=== PATIENT | male | born 1960 | race American Indian/Alaskan Native ===

== ENCOUNTER 2024-12-07 02:29 | Observation (INO) | payer MEDICARE, OTHER, SELFPAY ==
[2024-12-06 20:54] VITALS: BP 144/70; BMI 28.3
[2024-12-06 20:57] VITALS: BP 144/70
[2024-12-06 21:00] VITALS: BP 127/102
[2024-12-06 21:07] LABS: % Basophils 0.5 % (0-2); % Immature Granulocytes 0.6 % (0-0.5); % Lymphocytes 14.5 % (20.5-51.1); % Monocytes 6.1 % (1.7-9.3); % Neutrophils 75.3 % (42.2-75.2); Absolute Basophils 0.1 10^3/uL (0-0.2); Absolute Eosinophils 0.3 10^3/uL (0-0.7); Absolute Immature Granulocytes 0.1 10^3/uL (0-0.05); Absolute Lymphocytes 1.6 10^3/uL (1.2-3.4); Absolute Monocytes 0.7 10^3/uL (0.1-0.6); Hematocrit 35.3 % (39.0-52.0); Hemoglobin 11.9 g/dL (13.0-18.0); Mean Corp Hgb Conc. 33.7 g/dL (33.0-37.0); Mean Corpuscular Hgb 27.4 pg (27.0-31.0); Mean Corpuscular Volume 81.3 fL (80.0-94.0); Nucleated Red Blood Cells % 0 % (-); Platelet Count 276 10^3/uL (130-400); Red Blood Cell Count 4.34 10^6/uL (4.70-6.10); Red Cell Dist. Width 13.2 % (11.5-14.5); White Blood Cell Count 10.7 10^3/uL (4.8-10.8)
[2024-12-06 21:27] LABS: ALT (SGPT) 18 U/L (0-50); AST (SGOT) 17 U/L (17-59); Albumin 4.3 g/dl (3.5-5.0); Alkaline Phosphatase 88 U/L (38-126); Blood Urea Nitrogen 14 mg/dl (9-20); Calcium 9.1 mg/dl (8.4-10.2); Carbon Dioxide 24 mmol/L (22-30); Chloride 96 mmol/L (98-107); Estimated Creatinine Clearance 100 ml/min; Glucose 225 mg/dl (70-99); Potassium 3.9 mmol/L (3.5-5.1); Sodium 126 mmol/L (135-145); Total Bilirubin 0.5 mg/dl (0.2-1.3); Total Protein 6.6 g/dl (6.3-8.2); eGFR > 60.00
[2024-12-06 21:30] LABS: Troponin I < 0.012 ng/ml
[2024-12-06 22:00] VITALS: BP 122/82
[2024-12-06 23:53] VITALS: BP 108/79
--- NOTE | 2024-12-06 23:58 | ED.GENMED ---
History of Present Illness
General
Chief Complaint: Chest Pain
Source: patient
Exam Limitations: none
Time Seen by Provider: 12/06/24 22:01
Nursing documentation reviewed up to this point in time: agreed with
History of Present Illness
History of Present Illness:
Patient states he bent forward to put a dish of water on floor and when he stood up he felt light headed. Symptom did not resolve and he began to feel faint. States he sat in chair and took his pulse. States rate was irregular and he thought
maybe he was in afib. He tried to take an EKG thru his phone but could not get a good reading. He called 911 and was transported to ED. He denies chest pain. States he felt 'something' but not pain. Denies any SOB. No prior history of same
Past History
Past History
ED Past Medical History: Arrthythmia (afib), CAD, Hypercholesterolemia and NIDDM
ED Past Surgical History: Cardiac (stent)
Review of Systems
Review of Systems
Allergies reviewed?: Yes
All Other Systems: ROS reviewed and negative except as documented in HPI and ROS
Constitutional: Reports no symptoms
EENT: Reports no symptoms
Respiratory: Reports no symptoms
Cardiac: Reports other (irregular heart beat)
ABD/GI: Reports no symptoms
: Reports no symptoms
Musculoskeletal: Reports no symptoms
Skin: Reports no symptoms
Neurological: Reports other (lightheaded)
Psychiatric: Reports no symptoms
Phy Exam
General Physical Exam
General Presentation: mild distress
General age: appears stated age
General Skin: warm and dry
General Mental: alert
Cardiovascular Exam
Cardiovascular Exam: no edema and occasionally irregular
Pulmonary Exam
Pulmonary Exam: lungs clear and no respiratory distress
Musculoskeletal Exam
Musculoskeletal Exam: full ROM and neuro vasc intact
Skin Exam
Skin Exam: normal color, warm/dry and no rash
Psychiatric Exam
Psychiatric Exam: normal mood/affect
Course
Orders/Labs/Results
Orders:
Orders
12/06/24 20:52
Electrocardiogram (*1) Urgent
Reason for Study: Chest Pain
Cardiac Monitoring- Treatment ONCE
EKG- Treatment ONCE
IV Insert/Care/Rem.- Treatment PRN
O2 Therapy [RESP] Urgent
Titrate/Wean O2 to maintain O2 sat greater than (%): 90
Special Instructions: Maintain sats >/=90%
Pulse Ox/spot Check [RESP] Urgent
Quantity: 1
Special Instructions: ON ROOM AIR
12/06/24 20:54
Complete Blood Count/With Diff Urgent
Comprehensive Metabolic Panel Urgent
Troponin I Urgent
12/06/24 23:35
Electrocardiogram (*1) Urgent
Reason for Study: Palpitations
EKG- Treatment ONCE
12/06/24 23:57
Troponin I Urgent
Abnormal Lab Results
12/06/24
20:54
RBC 4.34 L 10^6/uL
(4.70-6.10)
Hgb 11.9 L g/dL
(13.0-18.0)
Hct 35.3 L %
(39.0-52.0)
Abs Immat Gran (auto) 0.1 H 10^3/uL
(0-0.05)
Absolute Neuts (auto) 8.0 H 10^3/uL
(1.4-6.5)
Absolute Monos (auto) 0.7 H 10^3/uL
(0.1-0.6)
Immature Gran % 0.6 H %
(0-0.5)
Neutrophils % 75.3 H %
(42.2-75.2)
Lymphocytes % 14.5 L %
(20.5-51.1)
Sodium 126 L mmol/L
(135-145)
Chloride 96 L mmol/L
(98-107)
Glucose 225 H mg/dl
(70-99)
12/06/24 20:54
12/06/24 20:54
Vital Signs
Initial and Last Documented VS:
Initial Vital Signs
Temp Pulse Resp BP Pulse Ox
98.6 F 103 15 144/70 100
12/06/24 20:54 12/06/24 20:54 12/06/24 20:54 12/06/24 20:54 12/06/24 20:54
Last Documented Vital Signs
Temp Pulse Resp BP Pulse Ox
97.8 F 85 23 129/63 97
12/07/24 00:00 12/07/24 00:30 12/07/24 00:30 12/07/24 00:00 12/07/24 00:30
*Pulse Oximetry
Patient hypoxic: no
Update Note
Update Note:
Patient to ED with complaint of lightheadedness, near syncope. Symptom started tonight. Denies any chest pain/pressure. Staters he 'felt something' at home but could not describe. EKG reviewed with Dr. Rodas who recommends admission.
Abnormal pauses noted in initial and repeat EKG. Troponin neg, repeat pending. He as a history of afib and is on xarelto. Reports compliance with med. VSS. WIll admit to hospitalists service.
Na 126 noted, he reports a baseline of 127-128. Does not know why he is chronically low, follows with absence management consultant.
ED Attending Note
-
Portions of this chart may have been created with voice recognition software.� Occasional wrong word or��sound alike� substitutions may have occurred due to the inherent limitations of voice recognition software.
Discharge Plan
Departure
Patient Disposition: Admit
Date of Disposition: 12/07/24
Time of Disposition: 00:42
Presentation/result/management discussed w/ accepting MD/DO: Hospitalist
Patient with high blood pressure during this ER visit?: No
Condition: Fair
Covid-19: Not Applicable
Discharge Problem:
Near syncope, Irregular heart rhythm
Referrals:
Jeremy Hung MD [Family Provider] -
Interventions
Interventions:
*Risk Screen - Suicide Last Done: 12/06/24 20:54
*General Assessment Last Done: 12/06/24 20:54
*Neglect/Abuse Screening Last Done: 12/06/24 20:54
*ED- Fall Risk Assessment Last Done: 12/06/24 20:54
*ED COVID-19 Vaccine History Last Done: 12/06/24 23:58
ED- Cardiac Assessment Last Done: 12/06/24 23:30
Discharge Date and Time
Print Language: P[place] ISLAND[place]
[2024-12-07] VITALS (9 sets, daily range): BP systolic 107–156; BP diastolic 22–96; PULSE 44–91; BMI 27.9
[2024-12-07 00:35] LABS: Troponin I < 0.012 ng/ml
--- NOTE | 2024-12-07 02:18 | HPS.HSE ---
Family Physician
-
Family Physician: Jeremy Hung
Chief Complaint
-
Lightheaded
History of Present Illness
Patient is a 64y M with PMH significant for PA-Fib and DM-II who presents to ED complaining of lightheadedness and weakness. Patient states that he bent down to place something on the ground this afternoon and when he stood he felt very
lightheaded. He was able to get back into the house and sat on the couch. He did not lose consciousness, fall, etc. Patient continued to feel lightheaded. He checked his pulse / EKG using his Apple Watch and noted that his pulse rate was
fluctuating significantly between 40 and 130 bpm. He had no chest pain or palpitations. No shortness of breath, nausea, diaphoresis, etc.
His lightheadedness did not fully resolve and his pulse remained erratic and patient called 911. He was brought to the ED for further evaluation.
Patient notes on review of his Watch data that he has had similar pulse abnormalities - though much less frequent / more brief - over the past few months. Episodes seem to have increased in frequency / duration over the past 1-2 months.
Patient has prior h/o A-Fib s/p PVI ablation at [facility] (2018).
Medical History
Past Medical History
Past Medical History: Reports Other
Additional Past Medical History:
Paroxysmal Atrial Fibrillation
ASCVD
Hypertension
DM-II
Chronic Hyponatremia
BPH
GERD
Past Surgical History: Reports Other
Additional Past Surgical History:
PVI Ablation
PTCA with Stent
Social History
Tobacco: Non-smoker
Alcohol: None
Drug: None
Family History
Family History: Not pertinent
Allergies / Home Medications
Allergies reflects when Allergies were last updated in [employer].
Home Medications with original date entered in [employer]
Allergy/Medication List:
Allergies
Allergy/AdvReac Type Severity Reaction Status Date / Time
No Known Allergies Allergy Unverified 12/07/24 00:05
Home Medications
amlodipine 5 mg tablet 5 mg PO BID 12/07/24
aspirin 81 mg chewable tablet 81 mg PO DAILY 12/07/24
demeclocycline 150 mg tablet 150 mg PO BID 12/07/24
ezetimibe 10 mg tablet 10 mg PO HS 12/07/24
finasteride 5 mg tablet 5 mg PO DAILY 12/07/24
insulin degludec 100 unit/mL (3 mL) subcutaneous pen (Tresiba FlexTouch U-100 insulin) 28 unit SC HS 12/07/24
metformin 1,000 mg tablet 1,000 mg PO DAILY 12/07/24
metoprolol tartrate 25 mg tablet 25 mg PO BID 12/07/24
omeprazole 20 mg capsule,delayed release 20 mg PO DAILY 12/07/24
repaglinide 1 mg tablet 1 mg PO TID 12/07/24
rivaroxaban 20 mg tablet (Xarelto) 20 mg PO QPM 12/07/24
rosuvastatin 5 mg tablet 5 mg PO HS 12/07/24
sitagliptin phosphate 50 mg-metformin 1,000 mg tablet (Janumet) 1 tab PO HS 12/07/24
valsartan 320 mg tablet 320 mg PO DAILY 12/07/24
Review of Systems
-
History Source: Patient
A 12 point ROS was completed and negative except as noted: Yes
Constitutional: Reports Fatigue; Denies Fever or Chills
EENT: Denies Sore Throat
Respiratory: Denies Cough or Trouble Breathing
Cardiac: Reports Syncope ('near syncope'); Denies Chest Pain or Palpitations
Abdomen/GI: Denies Abdominal Pain, Nausea, Vomiting or Diarrhea
: Denies Dysuria or Frequency
Musculoskeletal: Denies Joint Pain or Edema
Neurological: Denies Dizzy or Headache
Psych: Denies Depression or Anxiety
Physical Exam
Vital Signs
Vital Signs
Temp Pulse Resp BP Pulse Ox
97.8 F 85 17 120/61 100
12/07/24 00:00 12/07/24 02:00 12/07/24 02:00 12/07/24 02:00 12/07/24 02:00
Physical Exam
General: Other (64y M in no acute distress.)
HEENT: Moist mucous membranes and PERRLA
Respiratory: Clear; No Wheezes, Rales or Rhonchi
Cardiac: S1/S2 and Irregular Rhythm; No Murmur
GI: Soft, Non Tender, Non Distended and Normal Bowel Sounds
Musculoskeletal: No Clubbing, No Cyanosis and No Edema
Neuro: AO x 3
Laboratory Results
-
12/06/24 20:54
12/06/24 20:54
Laboratory Results
Total Bilirubin 0.5 mg/dl (0.2-1.3) 12/06/24 20:54
AST 17 U/L (17-59) 12/06/24 20:54
ALT 18 U/L (0-50) 12/06/24 20:54
Alkaline Phosphatase 88 U/L (38-126) 12/06/24 20:54
Troponin I < 0.012 ng/ml 12/06/24 23:57
Impression/Plan
-
A/P: Patient is a 64y M with PMH significant for PA-Fib, ASCVD and DM-II who presents to ED complaining of lightheadedness and arrhythmia.
Near-Syncope / Lightheadedness
Sinus Arrhythmia
- Observe overnight on telemetry for further evaluation.
- EKG / tele shows significant sinus arrhythmia with alternating periods of SVT and pauses.
- Cardiology evaluation for additional recommendations.
- Check TFTs, Echo, etc.
- Follow for any new / worsening symptoms.
Paroxysmal Atrial Fibrillation
- s/p ablation at [facility] several years ago.
- Continue current Xarelto for stroke risk reduction.
ASCVD
- Stable. No chest pain at present. Troponin undetectable x 2 sets.
- Continue ASA, statin, etc.
- Follow for any new complaints.
Chronic Hyponatremia
- Patient states that his typical Na level is 127-128.
- Current value is near known baseline and not likely related to presenting symptoms.
- Continue demeclocycline, salt supplementation.
- Follow for changes in Na levels.
Benign Hypertension
- Stable. Continue metoprolol, valsartan with holding parameters.
DM-II
- Stable. Continue basal insulin.
- Hold Prandin acutely.
- Follow glucose and cover with SSI as needed.
- Update A1C.
BPH
- Stable. Continue finasteride.
- Bladder scan protocol.
DVT Prophylaxis: On Xarelto
Code Status: Full
--- NOTE | 2024-12-07 03:35 | PTCARENOTE ---
Patient arrived from the ED via stretcher. Patient ambulated into the room. AAOx3, VSS. No complaints of dizziness or light headedness. No complaints of pain at this time. Patient updated on plan of care and medications. Oriented to the room. Call
eden is within reach.
[2024-12-07 07:33] LABS: Glucose - Point of Care 151 mg/dl (70-99)
[2024-12-07 08:17] LABS: Hematocrit 36.8 % (39.0-52.0); Hemoglobin 12.6 g/dL (13.0-18.0); Mean Corp Hgb Conc. 34.2 g/dL (33.0-37.0); Mean Corpuscular Hgb 27.5 pg (27.0-31.0); Mean Corpuscular Volume 80.2 fL (80.0-94.0); Mean Platelet Volume 9.4 fL (7.4-10.4); Platelet Count 292 10^3/uL (130-400); Red Blood Cell Count 4.59 10^6/uL (4.70-6.10); Red Cell Dist. Width 13.3 % (11.5-14.5); White Blood Cell Count 8.5 10^3/uL (4.8-10.8)
[2024-12-07 08:47] LABS: Blood Urea Nitrogen 11 mg/dl (9-20); Calcium 9.1 mg/dl (8.4-10.2); Carbon Dioxide 22 mmol/L (22-30); Chloride 98 mmol/L (98-107); Estimated Creatinine Clearance 100 ml/min; Glucose 143 mg/dl (70-99); Glycohemoglobin (HgbA1c) 6.7 % (4.0-5.6); HDL Cholesterol 47 mg/dl; LDL Cholesterol, Calculated 40 mg/dl; Magnesium 1.9 mg/dl (1.6-2.3); Potassium 4.4 mmol/L (3.5-5.1); Sodium 129 mmol/L (135-145); Total Cholesterol 99 mg/dl (50-199); Triglyceride 60 mg/dl (10-149); Very Low Density Lipoprotein 12 mg/dl (0-30); eGFR > 60.00
[2024-12-07] MEDS: DIOVAN 320 MG PO (08:51)
[2024-12-07] MEDS: NOVOLOG FLEXPEN-MODERATE RESISTANCE 1 UNITS SC ×2 (08:51→12:45)
[2024-12-07] MEDS: LOW STRENGTH ASPIRIN 81 MG PO (08:51)
[2024-12-07] MEDS: SODIUM CHLORIDE 1 GRAM PO (08:52)
[2024-12-07] MEDS: DECLOMYCIN 150 MG PO (08:52)
[2024-12-07 09:15] LABS: TSH Reflex To Free T4 1.51 uIU/ml (0.47-4.68)
[2024-12-07] MEDS: GLUCOPHAGE 1000 MG PO (09:15)
[2024-12-07] MEDS: PROTONIX 40 MG PO (09:15)
[2024-12-07] MEDS: NORVASC 5 MG PO (09:15)
--- NOTE | 2024-12-07 09:29 | CON.CAR ---
Addendum entered and electronically signed by Reynaldo Altman MD 12/07/24 11:41:
I saw and examined the patient.
The VENEER JOINTER OPERATOR's note was reviewed and I agree with the note.
Comment: 64 yo male (staff pharmacist is Dr. Luis Rizvi [place] and EP is Dr. Fracisco Muller at [facility]) with paroxysmal Afib s/p PVI in 2019 at [facility], CAD presents with increasing episodes of palpitations. In the past he had been told to take
metoprolol when he has palpitations. He was concerned because his watch was telling him his heart rate was in the low 40s at times. He is compliant with his Xarelto. He did have some dizziness when he changed positions yesterday. But he states
he has this issue frequently and knows that he just needs to change positions slowly. No chest pain. On exam he has a regular rate and rhythm with a normal S1-S2 no murmurs or gallops were appreciated abdomen soft nontender nondistended with no
hepatosplenomegaly extremities are well-perfused. EKG is reviewed, initial EKG showed sinus rhythm with brief runs of atrial tachycardia this morning sinus rhythm with PACs. Telemetry shows sinus rhythm with PACs. No significant arrhythmias no
significant bradycardia arrhythmias. Overall, palpitations likely in the setting of PACs and brief runs of PSVT. Recommend starting metoprolol succinate 25 mg p.o. nightly. Echocardiogram was normal today. He has follow-up planned with his
typical electrophysiology at the [facility] on 07 January. Recommend he keep that appointment. Orthostatics negative. Continue Xarelto for his history of PAF although we have not seen this recurrent today. I do think it is time for
him to stop his baby aspirin. Given remote PCI and ongoing use of DOAC. No contraindication to discharge.
Original Note:
Consultation
Consultation Request
Date/Time Consultation Requested: 12/07/24 5:15a
Date/Time Consultation Performed: 12/07/24 9a
Requesting Provider: Dr. Bob
Performing Provider: MICHELLE Harp for Dr. Altman
Reason for Consultation: near syncope
Medical History
-
Chief Complaint: near syncope
History of Present Illness:
Mr. Benítez is a 64 yo male (staff pharmacist is Dr. Luis Rizvi [place] and EP is Dr. Fracisco Muller at [facility]) with paroxysmal Afib s/p PVI in 2019 at [facility], CAD s/p PCI RCA 01/2019, HTN, DM, GERD and BPH, who presents to the ER with c/o dizziness and
possible arrhythmia. He states bending over to place his dog's water bowl on the ground and stood up fast and felt dizzy. This improved after seconds, so he started walking into his living room to sit down and again he felt mild dizziness. His
Apple Watch was reading rates 40s-120s and he call EMS. Upon arrival heart rate was 70s, he was brought to and now admitted to hospitalist service and we are consulted for near syncope. His EKGs show NSR with PACs, no Afib. Currently he feels
well at rest w/o dizziness.
Past Medical History
Past Medical History: Other (as above)
Past Surgical History: Cardiac (PVI 2018 at [facility])
Social History
Tobacco: Non-Smoker
Alcohol: None
Living: With Family
Family History
Family History: Reviewed & Not Pertinent
Allergies / Home Medications
Allergy/AdvReac Type Severity Reaction Status Date / Time
No Known Allergies Allergy Unverified 12/07/24 00:05
�Medication �Instructions �Recorded �Confirmed �Type
amlodipine 5 mg tablet 5 mg PO BID 12/07/24 12/07/24 History
aspirin 81 mg chewable tablet 81 mg PO DAILY 12/07/24 12/07/24 History
demeclocycline 150 mg tablet 150 mg PO BID 12/07/24 12/07/24 History
ezetimibe 10 mg tablet 10 mg PO HS 12/07/24 12/07/24 History
finasteride 5 mg tablet 5 mg PO DAILY 12/07/24 12/07/24 History
insulin degludec 100 unit/mL (3 28 unit SC 12/07/24 12/07/24 History
mL) subcutaneous pen (Tresiba
FlexTouch U-100 insulin)
metformin 1,000 mg tablet 1,000 mg PO DAILY 12/07/24 12/07/24 History
metoprolol tartrate 25 mg tablet 25 mg PO BID 12/07/24 12/07/24 History
omeprazole 20 mg capsule,delayed 20 mg PO DAILY 12/07/24 12/07/24 History
release
repaglinide 1 mg tablet 1 mg PO TID 12/07/24 12/07/24 History
rivaroxaban 20 mg tablet (Xarelto) 20 mg PO QPM 12/07/24 12/07/24 History
rosuvastatin 5 mg tablet 5 mg PO HS 12/07/24 12/07/24 History
sitagliptin phosphate 50 1 tab PO HS 12/07/24 12/07/24 History
mg-metformin 1,000 mg tablet
(Janumet)
valsartan 320 mg tablet 320 mg PO DAILY 12/07/24 12/07/24 History
Review of Systems
-
History Source: Patient
All other systems: Negative unless noted
Physical Exam
Vital Signs
Temp Pulse Resp BP Pulse Ox
98.4 F 82 18 138/68 95
12/07/24 07:30 12/07/24 08:51 12/07/24 07:30 12/07/24 08:51 12/07/24 07:30
Lab Results
12/07/24 07:01
12/07/24 07:01
Troponin I < 0.012 ng/ml 12/06/24 23:57
Physical Exam
General: Well Developed, Well Nourished and No Apparent Distress
HEENT: Normocephalic, Anicteric and Moist Mucous Membranes
Respiratory: Clear and Non Labored Respirations
Cardiac: S1/S2 and Regular Rhythm
Breast: Deferred by me
GI: Soft, Non Tender, Non Distended and Normal Bowel Sounds
Genito-urinary: No Costovertebral Tender
Musculoskeletal: No Clubbing, No Cyanosis and No Edema
Skin: Warm and Dry
Neuro: AO x 3
Hematologic/Lymphatic: No Lymphadenopathy
Psych: Calm
Impression / Plan
-
Near syncope - last night.
- initially orthostasis at home after standing up too quickly.
- tele and EKG with SR with PACs, no Afib.
- he has PRN Lopressor at home and has not used it, he states prior to ablation in 2019 he was on Metoprolol and it caused severe fatigue.
- monitor tele.
- he has a f/u appointment with his EP Dr. Muller at [facility] on 01/07/25.
- consider standing BB or CCB for ectopy and consider outpatient cardiac monitoring for longer time period.
Afib - paroxysmal.
- s/p PVI 2019 at [facility], follows with Dr. Muller at [facility].
- no recurrence of Afib on tele/ekg.
- continue Xarelto.
HTN - stable on meds, continue.
CAD - stable w/o angina.
- PCI 2019.
- he states having a cath about 6 months ago and no new CAD/patent stent.
- continue medical therapy.
Data Reviewed
-
EKG: Tracing Personally Visualized and interpreted (SR with PACs, PVCs)
Medical Tests (Nuc Med, Echo etc): Report Reviewed by me (echo 12/07/24: EF 55-60%, no valve disease.)
Labs: Labs Reviewed by me
Old Records: Reviewed
[2024-12-07 11:45] LABS: Glucose - Point of Care 175 mg/dl (70-99)
--- NOTE | 2024-12-07 12:42 | W.PN.HOSP.TC ---
Today's Communication/Plan
-
Discharge
Assessment / Plan
Assessment / Plan
64-year-old man with history of A-fib presented with lightheadedness and weakness. On his Apple Watch heart rate was fluctuating between 40 and 130 patient has a history of A-fib with PVI ablation at [facility] in 2018.
No complaints. Anxious to go home
CVS: S1-S2 normal
Chest: CTA B/L
Abdomen: Soft, NT ,Bowel sounds present
Extremities: No edema
Echo 12/07/2024-normal biventricular size and systolic function. EF 55 to 60%. No significant valvular disease
# Lightheadedness/near syncope prior to admission
EKG with sinus arrhythmia/paroxysmal SVT
Echo as above
Normal TSH
Troponin-negative
Cardiology evaluation
# Paroxysmal atrial fibrillation-status post ablation at [facility] 2018
Continue Xarelto. Beta-blockers added patient is agreeable to take it.
Comic Writer is Dr. Luis Rizvi [place] and EP is Dr. Fracisco Muller at [facility].
He has an appointment coming up on January 07
# Coronary artery disease with history of RCA stent-continue aspirin, statin, valsartan, metoprolol
# Chronic hyponatremia-patient was supposed to be on Adebamiro cyclin which he has not been taking. He recently saw his instrument engineer Dr. Terry Lucas who recommended that he restart demeclocycline and also take sodium chloride 1 g p.o. twice
daily. He has not started it as outpatient yet.
Continue demeclocycline. Sodium chloride 1 g p.o. twice daily started, sodium 129 today. Patient already has prescriptions at home.
# Hypertension-continue metoprolol, valsartan, amlodipine
# Hyperlipidemia-continue Zetia,Statin.
# Diabetes-hemoglobin A1c-6.7
Accu-Cheks and sliding scale coverage
Uses Lantus insulin 28 units at night, metformin 1000 mg in the morning, Prandin 1 mg p.o. 3 times daily, Janumet 1 tablet at night- Continue all that.
# Enlarged prostate-Pt reports stopped taking finasteride. States he follows up with his urologist regularly Dr. Renaldo Robertson.
# Sleep apnea-continue CPAP
# History of bladder cancer
# DVT prophylaxis-Xarelto
# Full code
Discussed with nursing
Discussed with cardiology
More than 30 minutes spent in discharge including
Final examination of the patient
Summarizing hospital stay
Instructions for continuing care to all relevant caregivers
Preparation of discharge records, prescriptions, and referral forms
Total time spent (in minutes): 36 min
Part of this note was created using voice recognition system. Occasional wrong word or��sound alike� substitutions may have inadvertently occurred due to the inherent limitations of voice recognition software. If noted kindly bring it to my
attention for correction.
Anticipated Discharge: Today
Subjective/Interval History
-
Date of Service: December 07, 2024
Objective Data
-
Labs:
Laboratory Results
12/07/24
07:01
WBC 8.5
Hgb 12.6 L
Hct 36.8 L
Plt Count 292
Sodium 129 L
Potassium 4.4
Chloride 98
Carbon Dioxide 22
BUN 11
Creatinine 0.7
Glucose 143 H
Calcium 9.1
Vital Signs:
Vital Signs
Temp Pulse Resp BP Pulse Ox
98.6 F 91 18 147/96 97
12/07/24 11:20 12/07/24 11:20 12/07/24 11:20 12/07/24 11:20 12/07/24 11:20
I&O
12/06/24 12/07/24 12/08/24
06:59 06:59 06:59
Intake Total 1460 / 1460
Output Total 950 / 950
Balance 510 / 510
[2024-12-07] MEDS: PRANDIN 1 MG PO (12:45)
--- NOTE | 2024-12-07 12:49 | W.DS.TRANS ---
Addendum entered and electronically signed by Diana Neff MD 12/07/24 17:27:
Dictation- [id number]
Original Note:
DC Summary - Service Person
-
Discharge Instructions:
Discharge Diagnosis/Procedures Atrial tachycardia and brief runs of SVT
Hyponatremia
Paroxysmal atrial fibrillation with ablation in
2018
Coronary artery disease
Hypertension
Hyperlipidemia
Diabetes
Sleep apnea
Diet Low Cholesterol
Activity As tolerated
Driving Restrictions As prior to admission
Instructions:
Stand-Alone Forms:
Changes to Home Medications: Yes
Discharge Medications:
DC Medications w/original date entered in [employer]
amlodipine 5 mg tablet 5 mg PO BID Blood pressure #0 tabs 12/07/24
aspirin 81 mg chewable tablet 81 mg PO DAILY Blood clot prevention/tx #0 tabs 12/07/24
demeclocycline 150 mg tablet 150 mg PO BID sodium #0 tabs 12/07/24
ezetimibe 10 mg tablet 10 mg PO HS High cholesterol #0 tabs 12/07/24
insulin degludec 100 unit/mL (3 mL) subcutaneous pen (Tresiba FlexTouch U-100 insulin) 28 unit (0.28 mL) SC HS Diabetes #0 mL 12/07/24
metformin 1,000 mg tablet 1,000 mg PO DAILY Diabetes #0 tabs 12/07/24
metoprolol succinate 25 mg tablet,extended release 24 hr 25 mg PO QPM Arrhythmia #30 tabs 12/07/24
omeprazole 20 mg capsule,delayed release 20 mg PO DAILY Gastrointestinal issue #0 caps 12/07/24
repaglinide 1 mg tablet 1 mg PO TID Diabetes #0 tabs 12/07/24
rivaroxaban 20 mg tablet (Xarelto) 20 mg PO QPM Blood clot prevention/tx #0 tabs 12/07/24
rosuvastatin 5 mg tablet 5 mg PO HS High cholesterol #0 tabs 12/07/24
sitagliptin phosphate 50 mg-metformin 1,000 mg tablet (Janumet) 1 tab PO HS Diabetes #0 tabs 12/07/24
sodium chloride 1,000 mg soluble tablet 1,000 mg PO BID sodium #0 tabs 12/07/24
valsartan 320 mg tablet 320 mg PO DAILY Blood pressure #0 tabs 12/07/24
Home Medication Changes
metoprolol restarted
Pending Results: No
--- NOTE | 2024-12-07 14:31 | CM ---
Patient seen bedside.
IA completed.
Patient vies with spouse in 2 story home.
Independent prior to admission without assistive devices.
Patient denies home care needs.
STEVENS completed.
PCP: Dr Hung
Pharmacy: [facility]
Plan: home no needs.
== END 2024-12-07 13:47 | disposition home or self-care (01) ==
LOC: 4 EAST ACU 02:29
PROVIDERS: Nurse Practitioner; ADMITTING PHYSICIAN Hospitalist; ATTENDING PHYSICIAN Hospitalist; EMERGENCY PHYSICIAN Student in an Organized Health Care Education/Training Program; FAMILY PHYSICIAN Internal Medicine; OTHER PHYSICIAN Internal Medicine Cardiovascular Disease
DX: I47.19 Other supraventricular tachycardia (principal); R07.9 Chest pain, unspecified; R42 Dizziness and giddiness; E78.00 Pure hypercholesterolemia, unspecified; I48.0 Paroxysmal atrial fibrillation; I25.10 Atherosclerotic heart disease of native coronary artery without angina pectoris; E11.9 Type 2 diabetes mellitus without complications; R00.2 Palpitations; R55 Syncope and collapse; I49.1 Atrial premature depolarization; G47.30 Sleep apnea, unspecified; I10 Essential (primary) hypertension; E87.1 Hypo-osmolality and hyponatremia; N40.0 Benign prostatic hyperplasia without lower urinary tract symptoms; K21.9 Gastro-esophageal reflux disease without esophagitis; Z95.5 Presence of coronary angioplasty implant and graft; Z79.01 Long term (current) use of anticoagulants; Z79.84 Long term (current) use of oral hypoglycemic drugs; Z85.51 Personal history of malignant neoplasm of bladder; Z79.899 Other long term (current) drug therapy; Z79.82 Long term (current) use of aspirin; Z79.4 Long term (current) use of insulin
CPT/HCPCS: 80048; 80053; 80061; 82962; 83036; 83735; 84443; 84484; 85025; 85027; 93005; 93306; 94760; 99285

== ENCOUNTER 2025-02-08 16:41 | Emergency (ER) | payer MEDICARE, OTHER, SELFPAY ==
[2025-02-08 16:45] VITALS: BP 135/79
[2025-02-08 17:00] VITALS: BP 119/75
[2025-02-08 17:00] LABS: Hematocrit 31.2 % (39.0-52.0); Hemoglobin 10.4 g/dL (13.0-18.0); Mean Corp Hgb Conc. 33.3 g/dL (33.0-37.0); Mean Corpuscular Volume 83.0 fL (80.0-94.0); Nucleated Red Blood Cells % 0 % (-); Platelet Count 321 10^3/uL (130-400); Red Cell Dist. Width 14.0 % (11.5-14.5)
[2025-02-08 17:10] LABS: ALT (SGPT) 37 U/L (0-50); AST (SGOT) 27 U/L (17-59); Albumin 4.2 g/dl (3.5-5.0); Alkaline Phosphatase 61 U/L (38-126); Blood Urea Nitrogen 19 mg/dl (9-20); Calcium 9.4 mg/dl (8.4-10.2); Carbon Dioxide 24 mmol/L (22-30); Chloride 99 mmol/L (98-107); Glucose 161 mg/dl (70-99); Potassium 4.6 mmol/L (3.5-5.1); Sodium 129 mmol/L (135-145); Total Protein 6.8 g/dl (6.3-8.2); eGFR > 60.00
[2025-02-08 17:22] LABS: Troponin I < 0.012 ng/ml
--- NOTE | 2025-02-08 18:49 | ED.GENMED ---
History of Present Illness
General
Chief Complaint: Heart Rate Problem
Time Seen by Provider: 02/08/25 18:01
History of Present Illness
History of Present Illness:
64-year-old male with history of paroxysmal A-fib, hypertension, hyperlipidemia, bladder cancer status post TURBT, and insulin-dependent diabetes presents the emergency department for evaluation of rapid A-fib. He noted that his heart rate went
into a rapid A-fib at approximately 3 PM today. He took an extra dose of short acting metoprolol and now feels improved. Denies any chest pain now but did have it when the heart rate was elevated. Notes that he is 9 days status post TURBT and has
been on and off his Xarelto due to bleeding complications.
Past History
Past History
ED Past Medical History: Arrthythmia (afib), CAD, Hypercholesterolemia and NIDDM
ED Past Surgical History: Cardiac (stent)
Review of Systems
Review of Systems
Allergies reviewed?: Yes
All Other Systems: ROS reviewed and negative except as documented in HPI and ROS
Phy Exam
Physical Exam
Physical Exam:
GEN: Well appearing, NAD, WDWN
HEENT: Oral mucosa moist, no scleral icterus
Cardiac: Irregular, controlled rate
Lung: No respiratory distress, no tachypnea
MSK: No gross deformity or injuries
Skin: Good color, no pallor or jaundice, no rashes
Neuro: AO x3, moves all extremities freely
Psych: Calm, cooperative
Course
Orders/Labs/Results
Orders:
Orders
02/08/25 16:48
ECG [Electrocardiogram (*1)] Urgent
Reason for Study: Tachycardia
02/08/25 16:49
EKG- Treatment ONCE
02/08/25 16:50
Complete Blood Count/With Diff Urgent
Comprehensive Metabolic Panel Urgent
Troponin I Urgent
Abnormal Lab Results
02/08/25
16:50
RBC 3.76 L 10^6/uL
(4.70-6.10)
Hgb 10.4 L g/dL
(13.0-18.0)
Hct 31.2 L %
(39.0-52.0)
Abs Immat Gran (auto) 0.1 H 10^3/uL
(0-0.05)
Immature Gran % 0.6 H %
(0-0.5)
Sodium 129 L mmol/L
(135-145)
Glucose 161 H mg/dl
(70-99)
02/08/25 16:50
02/08/25 16:50
Vital Signs
Initial and Last Documented VS:
Initial Vital Signs
Temp Pulse Resp BP Pulse Ox
98.3 F 112 18 135/79 99
02/08/25 16:45 02/08/25 16:45 02/08/25 16:45 02/08/25 16:45 02/08/25 16:45
Last Documented Vital Signs
Temp Pulse Resp BP Pulse Ox
98.3 F 108 18 119/75 98
02/08/25 16:45 02/08/25 18:00 02/08/25 18:00 02/08/25 17:00 02/08/25 18:51
MDM/Problems Addressed
MDM/Problems Addressed:
Patient remained rate controlled in A-fib during my evaluation. He is not a cardioversion candidate due to intermittent use of anticoagulants over the past week plus. Recommend he follow-up as an outpatient with motor vehicle assembler, we will increase his
baseline metoprolol from 25 mg daily to 25 mg twice daily
*Pulse Oximetry
SaO2: 98
Oxygen Mode of Delivery: Room air
Patient hypoxic: no
*Critical Care Note
Total Time (30-74mins, 75-104mins- exclusive of procedures): Not Applicable
ED Attending Note
-
Portions of this chart may have been created with voice recognition software.� Occasional wrong word or��sound alike� substitutions may have occurred due to the inherent limitations of voice recognition software.
Discharge Plan
Departure
Patient Disposition: Home (Routine Discharge)
Date of Disposition: 02/08/25
Time of Disposition: 18:51
Patient with high blood pressure during this ER visit?: No
Discharge Problem:
Atrial fibrillation with RVR
Instructions: Atrial Fibrillation (DC)
Prescriptions:
No Action
sodium chloride 1,000 mg Tablet,Soluble
1,000 mg PO BID Qty: 0 0RF
metoprolol succinate 25 mg Tablet Extended Release 24 Hr
25 mg PO QPM Qty: 30 0RF
demeclocycline 150 mg Tablet
150 mg PO BID Qty: 0 0RF
amlodipine 5 mg Tablet
5 mg PO BID Qty: 0 0RF
metformin 1,000 mg Tablet
1,000 mg PO DAILY Qty: 0 0RF
valsartan 320 mg Tablet
320 mg PO DAILY Qty: 0 0RF
omeprazole 20 mg Capsule,Delayed Release(Dr/Ec)
20 mg PO DAILY Qty: 0 0RF
aspirin 81 mg Tablet,Chewable
81 mg PO DAILY Qty: 0 0RF
repaglinide 1 mg Tablet
1 mg PO TID Qty: 0 0RF
ezetimibe 10 mg Tablet
10 mg PO HS Qty: 0 0RF
rosuvastatin 5 mg Tablet
5 mg PO HS Qty: 0 0RF
Janumet 50-1,000 mg Tablet
1 tab PO HS Qty: 0 0RF
Xarelto 20 mg Tablet
20 mg PO QPM Qty: 0 0RF
insulin degludec [Tresiba FlexTouch U-100] 100 unit/mL (3 mL) Insulin Pen
28 unit SC HS Qty: 0 0RF
Activity Restrictions/Additional Instructions:
Take your extended release metoprolol 25 mg a morning and 25 mg at night. You may use your short acting metoprolol for breakthrough rapid heart rates. Follow-up with your motor vehicle assembler for further management. Restart your Xarelto at the discretion
of your urologist
Interventions
Interventions:
*Neglect/Abuse Screening Last Done: 02/08/25 17:48
*Nursing Disposition Last Done: 02/08/25 19:04
ED- Cardiac Assessment Last Done: 02/08/25 16:50
ED- Pulmonary Assessment Last Done: 02/08/25 16:50
Discharge Date and Time
Discharge Date/Time: 02/08/25 19:05
Print Language: [id number]
== END 2025-02-08 19:05 | disposition home or self-care (01) ==
LOC: EMR 16:41
PROVIDERS: EMERGENCY PHYSICIAN Emergency Medicine; FAMILY PHYSICIAN Internal Medicine
DX: I48.0 Paroxysmal atrial fibrillation (principal); I10 Essential (primary) hypertension; E78.00 Pure hypercholesterolemia, unspecified; E11.9 Type 2 diabetes mellitus without complications; Z85.51 Personal history of malignant neoplasm of bladder; Z79.899 Other long term (current) drug therapy
CPT/HCPCS: 99284; 80053; 84484; 85025; 93005